=== PATIENT | female | born 1970 | race Caucasian/White ===

== ENCOUNTER 2023-05-26 21:33 | Emergency (ER) | payer OTHER, SELFPAY ==
[2023-05-26 21:49] VITALS: BP 112/77; PULSE 90; RESP 16; TEMP 36.6; O2SAT 99
--- NOTE | 2023-05-26 22:29 | ED_ITS ---
HPI - Chest Pain General Time Seen by Provider: 22:30 Date Seen: 05/26/23 Chief Complaint: Chest Pain Stated Complaint: chest pains last couple of days Time Seen by Provider: 05/26/23 22:26 Source: patient, RN notes reviewed and old records reviewed Mode of arrival: ambulatory Limitations: no limitations History of Present Illness HPI narrative: 53-year-old female who presents today with several weeks of chest pain. Pain is constant substernal. Usually achy but occasionally sharp. Not worse with movement, breathing, activity, eating or drinking, no pain with swallowing. Has occasional burning in her nose and phlegm in her throat. Denies shortness of breath or abdominal pain. Has not taken anything for this. Related Data Previous Rx's Medication Instructions Recorded sucralfate 1 gram tablet (Carafate) 1 g PO BID #60 tabs 05/26/23 Allergies Allergy/AdvReac Type Severity Reaction Status Date / Time No Known Drug Allergies Allergy Verified 05/26/23 21:48 Exam Narrative Exam Narrative: General: Well-developed and well-nourished, no acute distress Head: Atraumatic and normocephalic Eyes: Pupils are equal reactive, extraocular motions intact, conjunctiva clear ENT: External nose and ears are normal, posterior pharynx without erythema or exudate Neck: No midline cervical tenderness, full spontaneous range of motion the neck, trachea midline, no adenopathy Heart: Regular rate and rhythm no murmurs or thrills Lungs: Clear to auscultation bilaterally without wheezes or crackles, tenderness along left sternal border Abdomen: Soft, nontender, nondistended with active bowel sounds Musculoskeletal: No tenderness, deformity, or edema Neurologic: Awake, alert, and oriented x3, no gross focal neurologic deficits, cranial nerves intact as tested Psych: Mood and affect are appropriate Skin: No rashes Const Vital Signs, click to edit/add: Vital Signs - 24 hr 05/26/23 21:49 Temperature 97.8 F Pulse Rate [Left Pulse Oximeter] 90 Respiratory Rate 16 Blood Pressure [Right Upper Arm] 112/77 Pulse Oximetry 99 Oxygen Delivery Method Room Air Course Course ED Course: Patient seen examined, prior records are reviewed. Patient with several weeks of substernal chest pain which she describes as achy, also burning in her nose and phlegm in her throat consistent with possible reflux, however she does have some reproducible tenderness along the sternal border. EKG is reassuring, labs ordered along with chest x-ray, Toradol and Maalox. Patient does smoke cigarettes and occasionally drinks alcohol. Reevaluation(s) Time of Reevaluation #1: 23:36 Reevaluation #1: Labs independently interpreted by me with normal CBC, no leukocytosis or anemia, normal troponin, normal basic panel, reassuring pattern pale, normal lipase. Chest x-ray and panel interpreted by me is negative. Patient substernal chest pain going on for about a month, occasionally sharp but mostly achy, along with symptoms that sound like water brash and reflux. No evidence for acute coronary syndrome, pancreatitis, acute cholecystitis, pneumonia, or pulmonary embolism. Patient will be started on Carafate and follow-up with primary care. Vital Signs Vital signs: Initial Vital Signs Temperature 97.8 F 05/26/23 21:49 Temperature Source Temporal Artery Scan 05/26/23 21:49 Pulse Rate 90 05/26/23 21:49 Pulse Rhythm Regular 05/26/23 21:49 Respiratory Rate 16 05/26/23 21:49 Blood Pressure 112/77 05/26/23 21:49 Blood Pressure Mean 88 05/26/23 21:49 Blood Pressure Position Sitting 05/26/23 21:49 Pulse Oximetry 99 05/26/23 21:49 Oxygen Delivery Method Room Air 05/26/23 21:49 Vital Signs Temperature 97.8 F 05/26/23 21:49 Pulse Rate 90 05/26/23 21:49 Respiratory Rate 16 05/26/23 21:49 Blood Pressure 112/77 05/26/23 21:49 Pulse Oximetry 99 05/26/23 21:49 Oxygen Delivery Method Room Air 05/26/23 21:49 Temperature 97.8 F 05/26/23 21:49 Pulse Rate 90 05/26/23 21:49 Respiratory Rate 16 05/26/23 21:49 Blood Pressure 112/77 05/26/23 21:49 Pulse Oximetry 99 05/26/23 21:49 Oxygen Delivery Method Room Air 05/26/23 21:49 MDM - Chest Pain Lab Data Labs: Lab Results 05/26/23 Range/Units 23:00 WBC 9.24 (4.50-11.00) K/uL RBC 4.60 (4.00-5.20) m/uL Hgb 13.8 (12.0-16.0) gm/dL Hct 42.4 (33.0-51.0) % MCV 92 (80-100) fL MCH 30 (26-34) pg MCHC 33 (32-36) gm/dL RDW Coeff of Sharan 12.4 (11.5-15.5) % Plt Count 248 (140-440) K/uL Neut % (Auto) 64.1 (42.0-72.0) % Lymph % (Auto) 27.5 (20-44) % Marin % (Auto) 6.5 (0.0-11.0) % Eos % (Auto) 1.4 (0.0-7.0) % Baso % (Auto) 0.4 (0.0-3.0) % Neut # (Auto) 5.92 (1.7-7.0) K/uL Lymph # (Auto) 2.54 (0.90-2.90) K/uL Marin # (Auto) 0.60 (0.00-0.90) K/UL Eos # (Auto) 0.13 (0.00-0.50) K/uL Baso # (Auto) 0.04 (0.00-0.30) K/uL Abs Immat Gran (auto) 0.01 (0.00-0.30) K/uL Imm/Tot Granulo (auto) 0.1 % Sodium 136 (135-149) mmol/L Potassium 4.2 (3.6-5.1) mmol/L Chloride 105 (96-114) mmol/L Carbon Dioxide 27 (20-32) mmol/L Anion Gap 4 L (7-15) mEq/L BUN 16 (7-30) mg/dL Creatinine 0.5 (0.5-1.5) mg/dL Estimated GFR 111 ml/min Glucose 100 (60-115) mg/dL Calcium 9.2 (8.4-10.6) mg/dL Total Bilirubin 0.4 (0.1-1.5) mg/dL Direct Bilirubin 0.0 (0.0-0.5) mg/dL AST 33 (12-35) U/L ALT 22 (4-35) U/L Alkaline Phosphatase 76 (40-150) U/L Total Protein 6.6 (6.0-8.3) g/dL Albumin 4.0 (3.3-5.0) g/dL Lipase 84 (23-300) U/L POC Troponin I 0.00 L (0.01-0.04) ng/ml ECG Data Attestation: I personally reviewed and interpreted this ECG as follows: ECG interpretation date: 05/26/23 ECG interpretation time: 22:31 Prior ECG tracings: not available for review Interpretation: Independently interpreted by me with sinus rhythm rate 74, [place] 136, normal intervals, normal axis, no prior for comparison Discharge Plan Discharge Clinical Impression: Atypical chest pain Patient Disposition: Home, Self-Care Condition: Improved Instructions: GERD (Gastroesophageal Reflux Disease) (DC), Noncardiac Chest Pain (ED) Additional Instructions: Take medications as prescribed. Follow-up with your primary care doctor in 5-7 days Activity Level: No Restrictions Discharge Diet: Regular Prescriptions: New sucralfate [Carafate] 1 gram tablet 1 g PO BID Qty: 60 0RF Follow Up/Referrals: Provider,Not a Local [Primary Care Provider] - Stand Alone Forms: [employer] Info Instructions
--- NOTE | 2023-05-26 22:40 | CRLHL7_ITS ---
For Patients: As a result of the Cures Act, medical imaging exams and procedure reports are released immediately into your electronic medical record. You may view this report before your referring provider. If you have questions, please contact your health care provider. INDICATION: Chest pain. TECHNIQUE: Chest 2 views. COMPARISON: None. FINDINGS: Cardiovascular and mediastinum: Heart size and vasculature are normal in caliber and appearance. Lungs and pleural spaces: Lungs are clear. No sign of infiltrate or mass. No sign of pleural effusion. No pneumothorax. Bones and soft tissues: No significant findings. IMPRESSION: No acute or significant findings. Dictated by Kip Alcocer MD @ 05/26/2023 11:21:44 PM (Electronically Signed)
[2023-05-26] MEDS: KETOROLAC 15 MG/ML inj IVP (23:00)
[2023-05-26 23:08] LABS: Basophils Absolute Auto 0.04 K/uL (0.00-0.30); Basophils Percent Auto 0.4 % (0.0-3.0); Eosinophils Absolute Auto 0.13 K/uL (0.00-0.50); Eosinophils Percent Auto 1.4 % (0.0-7.0); Hematocrit 42.4 % (33.0-51.0); Hemoglobin* 13.8 gm/dL (12.0-16.0); Immature Granulocytes Abs Auto 0.01 K/uL (0.00-0.30); Immature Granulocytes Pct Auto 0.1 %; Lymphocytes Absolute Auto 2.54 K/uL (0.90-2.90); Lymphocytes Percent Auto 27.5 % (20-44); Mean Corpuscular HGB Conc 33 gm/dL (32-36); Mean Corpuscular Hemoglobin 30 pg (26-34); Mean Corpuscular Volume 92 fL (80-100); Monocytes Percent Auto 6.5 % (0.0-11.0); Neutrophils Absolute Auto 5.92 K/uL (1.7-7.0); Neutrophils Percent Auto 64.1 % (42.0-72.0); Platelet Count* 248 K/uL (140-440); RDW Coefficient of Variation % 12.4 % (11.5-15.5); White Blood Count* 9.24 K/uL (4.50-11.00)
[2023-05-26 23:11] LABS: Slide Review Reflex No
[2023-05-26 23:21] LABS: Chloride* 105 mmol/L (96-114); Potassium* 4.2 mmol/L (3.6-5.1); Sodium* 136 mmol/L (135-149)
[2023-05-26 23:23] LABS: Creatinine* 0.5 mg/dL (0.5-1.5); Estimated Glomerular Filt Rate 111 ml/min
[2023-05-26 23:24] LABS: Alanine Aminotransferase* 22 U/L (4-35); Alkaline Phosphatase* 76 U/L (40-150); Anion Gap 4 mEq/L (7-15); Aspartate Amino Transferase* 33 U/L (12-35); Bilirubin Total* 0.4 mg/dL (0.1-1.5); Blood Urea Nitrogen* 16 mg/dL (7-30); Calcium* 9.2 mg/dL (8.4-10.6); Carbon Dioxide* 27 mmol/L (20-32); Glucose* 100 mg/dL (60-115); Lipase* 84 U/L (23-300); Total Protein* 6.6 g/dL (6.0-8.3)
== END 2023-05-26 23:51 | disposition home or self-care (01) ==
PROVIDERS: Emergency Provider Family Medicine
DX: R07.89 Other chest pain (principal)
CPT/HCPCS: 36415; 71046; 80048; 80076; 83690; 84484; 85025; 93005; 96374; 99284; J1885